=== PATIENT | male | born 1965 | race Two or more races ===

== ENCOUNTER 2024-06-25 07:30 | Emergency (ER) | payer MEDICAID, OTHER ==
[~2024-06-25] VITALS: Ht 162.6 cm; Wt 75.7 kg
[2024-06-25 07:43] VITALS: O2SAT 97
[2024-06-25] MEDS: IV NORMAL SALINE 1000 ML BAG IV ONE (08:35)
[2024-06-25 08:50] LABS: CALCIUM 8.7 mg/dL (8.5-10.1); CARBON DIOXIDE 27 mmol/L (21-32); CHLORIDE 104 mmol/L (98-107); CREATININE 0.8 mg/dL (0.6-1.3); GLUCOSE 132 mg/dL (74-106); POTASSIUM 3.7 mmol/L (3.5-5.1); SODIUM SERUM 140 mmol/L (136-145); UREA NITROGEN, BLOOD 5 mg/dL (7-18)
[2024-06-25 08:55] LABS: CREATINE KINASE, TOTAL 359 U/L (39-308)
[2024-06-25 08:58] LABS: ALANINE AMINOTRANSFERASE 43 U/L (16-63); ALKALINE PHOSPHATASE 82 U/L (50-136); ASPARTATE AMINOTRANSFERASE 34 U/L (15-37); BILIRUBIN,DIRECT 0.2 mg/dL (0.0-0.2); BILIRUBIN,TOTAL 0.8 mg/dL (0.2-1.0); LIPASE 41 U/L (16-77); TOTAL PROTEIN, SERUM 6.3 g/dL (6.4-8.2)
[2024-06-25 09:02] LABS: BASOPHILS % (AUTO) 0.8 % (0.0-2.0); HEMOGLOBIN 16.2 g/dL (12.5-16.3); LYMPHOCYTES # (AUTO) 0.6 K/uL (0.8-4.8); LYMPHOCYTES % (AUTO) 9.9 % (20.5-51.5); MEAN CORPUSCULAR HEMOGLOBIN 31.2 uug (23.8-33.4); MEAN CORPUSCULAR HGB CONC 35 g/dL (32.5-36.3); MEAN CORPUSCULAR VOLUME 90.4 fL (73.0-96.2); MONOCYTES # (AUTO) 0.5 K/uL (0.1-1.30); MONOCYTES % (AUTO) 8.3 % (0.0-11.0); NEUTROPHILS # (AUTO) 5.3 K/uL (1.8-8.9); PLATELET COUNT (AUTO) 191 K/uL (152-348); RED CELL DISTRIBUTION WIDTH 13.2 % (12.1-16.2); WHITE BLOOD COUNT (AUTO) 6.5 K/uL (3.6-10.2)
[2024-06-25 09:05] LABS: *BILIRUBIN,URIN NEGATIVE (NEGATIVE); *BLOOD, URINE NEGATIVE (NEGATIVE); *CLARITY,URINE CLEAR (CLEAR); *COLOR,URINE YELLOW (YELLOW); *KETONES,URINE NEGATIVE (NEGATIVE); *PROTEIN,URINE 1+ (NEGATIVE); LEUKOCYTE ESTERASE ,URINE NEGATIVE (NEGATIVE); NITRITE, URINE NEGATIVE (NEGATIVE); PH,URINE 8.5 (5.0-8.0); UGLUCOSE NEGATIVE (NEGATIVE)
[2024-06-25 09:24] LABS: DIFFERENTIAL COMMENT 1
[2024-06-25 09:45] LABS: ETHANOL < 3 MG/DL (0-10)
[2024-06-25 10:09] LABS: RBC,URINE NONE SEEN /HPF (0-3); URINE AMORPHOUS PHOSPHATES FEW /HPF; WBC,URINE 0-3 /HPF (0-3)
[2024-06-25 12:25] LABS: *OCCULT BLOOD STOOL NEGATIVE (NEGATIVE)
[2024-06-25] MEDS ORDERED: LISI10TA29 PO (18:21)
[2024-06-25] MEDS ORDERED: TRAZ-182 PO (18:21)
== END 2024-06-25 18:28 | disposition home or self-care (01) ==
LOC: ER 07:30
DX: T67.5XXA Heat exhaustion, unspecified, initial encounter (principal); E86.0 Dehydration; F32.A Depression, unspecified; Z79.899 Other long term (current) drug therapy; Z88.0 Allergy status to penicillin; X58.XXXA Exposure to other specified factors, initial encounter; Y93.89 Activity, other specified; Y92.89 Other specified places as the place of occurrence of the external cause; Y99.8 Other external cause status
CPT/HCPCS: 80076; 80048; 81001; 82270; 82550; 83690; 85025; 85730; 87040 ×2; 84484; 36415; 93005 ×2; 71045; 74176; 99285; 96360; 83605; 80320; J7040 ×2; A4606; A4663; G0480